=== PATIENT | male | born 1970 | race Caucasian/White ===

== ENCOUNTER 2018-08-18 20:44 | Observation (INO) | payer SELFPAY ==
[2018-08-18] MEDS ORDERED: TDAP ADULT 0.5 ML INJ (BOOSTRIX) IM ONE (20:52)
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
[2018-08-18 22:29] LABS: PLATELET COUNT 260 10^3/uL (150-400)
[2018-08-18] MEDS ORDERED: SKIN ADHESIVE (DERMABOND) 1 EACH TP ONE (22:57)
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
[2018-08-19] MEDS ORDERED: ONDANSETRON DISINTEGRATING 4 MG TAB PO PRN (02:32)
[2018-08-19] MEDS ORDERED: ONDANSETRON 4 MG/2 ML VIAL IVP PRN (02:32)
[2018-08-19] MEDS ORDERED: FLUMAZENIL 0.5 MG/5 ML MDV IVP PRN (02:37)
[2018-08-19] MEDS ORDERED: NS 1,000 ML IV SCH (02:45)
[2018-08-19] MEDS: oxyCODONE IR 5 MG TAB PO PRN ×4 (03:13→21:19)
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
[2018-08-19 05:38] LABS: INR 1.3 (0.83-1.16); PROTIME(PATIENT) 15.6 SEC (12.0-15.0)
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
[2018-08-19] MEDS: THIAMINE HCL 500 MG in NS 100 ML IV SCH (08:33)
[2018-08-19] MEDS: LORazepam 2 MG/ML INJ IVP PRN ×2 (08:33→21:19)
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
[2018-08-19] MEDS: VODKA 50 ML BOTTLE PO SCH ×3 (09:39→21:18)
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
[2018-08-20] MEDS: oxyCODONE IR 5 MG TAB PO PRN (03:18)
[2018-08-20] MEDS: LORazepam 2 MG/ML INJ IVP PRN (03:24)
[2018-08-20 07:36] VITALS: BP 165/99
[2018-08-20] MEDS: VODKA 50 ML BOTTLE PO SCH (08:36)
[2018-08-20] MEDS: THIAMINE HCL 500 MG in NS 100 ML IV SCH (08:36)
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
--- NOTE | 2018-08-20 09:54 | ASMTCMCOM ---
CM Note CM Note Notes: Pt medically stable for d/c. Pt declines [facility] skilled nursing bed, reports he is waiting to hear from some friends about possibly getting a hotel room tonight. Pt reports he has never been to [facility]. It does not sound like pt has been homeless in [facility], reports he is from [place]. Pt is provided the [facility] handout with walk in hours since the back line is not operational on weekends to secure an appointment. Pt reports his plan for prescriptions is to take them to a pharmacy and private pay for them. Pt provided local bus pass. Date Signed: 08/20/2018 09:53 AM Electronically Signed By:WESLEY Mccarthy
[2018-08-22] MEDS ORDERED: THIAMINE HCL 100 MG TAB PO SCH (09:00)
== END 2018-08-20 12:20 | disposition home or self-care (01) ==
LOC: F3N 23:56
PROVIDERS: ADMIT Surgery; ATTEND Surgery
PROC: 0HQ1XZZ Repair Face Skin, External Approach (ICD-10-PCS; principal; 2018-08-18)
DX: S02.40DA Maxillary fracture, left side, initial encounter for closed fracture (principal); S02.2XXS Fracture of nasal bones, sequela; J34.2 Deviated nasal septum; S02.32XD Fracture of orbital floor, left side, subsequent encounter for fracture with routine healing; S01.412A Laceration without foreign body of left cheek and temporomandibular area, initial encounter; S01.81XA Laceration without foreign body of other part of head, initial encounter; Y04.0XXA Assault by unarmed brawl or fight, initial encounter; Y92.830 Public park as the place of occurrence of the external cause; Y99.8 Other external cause status; F10.120 Alcohol abuse with intoxication, uncomplicated; Y90.8 Blood alcohol level of 240 mg/100 ml or more; I10 Essential (primary) hypertension; F43.12 Post-traumatic stress disorder, chronic; Z87.820 Personal history of traumatic brain injury; Z59.0 Homelessness
CPT/HCPCS: 96374; G0378; G0480; J0696; J2060; J2270; J3411

== ENCOUNTER 2018-08-31 10:56 | Emergency (ER) | payer SELFPAY | END 2018-08-31 12:33 | disposition home or self-care (01) ==

== ENCOUNTER 2018-09-02 16:03 | Emergency (ER) | payer OTHER | END 2018-09-02 20:14 | disposition home or self-care (01) ==

== ENCOUNTER 2018-09-15 07:45 | Inpatient (IN) | payer MEDICAID | END 2018-09-17 14:11 | disposition left against medical advice (07) | LOC: F3E 09:52 ==

== ENCOUNTER 2018-09-18 21:56 | Observation (INO) | payer MEDICAID | END 2018-09-19 16:17 | disposition home or self-care (01) | LOC: F3E 09-19 00:39 ==

== ENCOUNTER 2018-09-30 03:30 | Emergency (ER) | payer MEDICAID | END 2018-09-30 05:05 | disposition home or self-care (01) ==